=== PATIENT | female | born 1980 | race African-American/Black ===

== ENCOUNTER 2018-06-24 06:36 | Emergency (ER) | payer SELFPAY ==
--- NOTE | 2018-06-24 07:14 | EDM.PDOC ---
ED HPI GENERAL MEDICAL PROBLEM - General Chief Complaint: Gastrointestinal Problem Stated Complaint: VOMITING Time Seen by Provider: 06/24/18 07:05 Source of Information: Reports: Patient History Limitations: Reports: No Limitations - History of Present Illness INITIAL COMMENTS - FREE TEXT/NARRATIVE: History of present illness: []Patient has been vomiting for 3 days and feels extremely tired. She denies any blood in her emesis, diarrhea, fevers, chills or abdominal pain. She does not believe she is , she is due to start her menses tomorrow. She denies any vaginal discharge or pelvic pain. Review of systems: As per history of present illness and below otherwise all systems reviewed and negative. Past medical history: As per history of present illness and as reviewed below otherwise noncontributory. Surgical history: As per history of present illness and as reviewed below otherwise noncontributory. Social history: No reported history of drug or alcohol abuse. Family history: As per history of present illness and as reviewed below otherwise noncontributory. Physical exam: General: Well developed, well nourished in NAD HEENT: Atraumatic, normocephalic, pupils reactive, negative for conjunctival pallor or scleral icterus, mucous membranes moist, throat clear, neck supple, nontender, trachea midline. Lungs: Clear to auscultation, breath sounds equal bilaterally, chest nontender. Heart: S1S2, regular, negative for clicks, rubs, or JVD. Abdomen: NABS, Soft, nondistended, nontender no rebound or guarding. Negative for masses or hepatosplenomegaly. Negative for costovertebral tenderness. Pelvis: Stable nontender. Genitourinary: Deferred. Rectal: Deferred. Extremities: Atraumatic, negative for cords or calf pain. Neurovascular unremarkable. Neuro: Awake, alert, oriented. Cranial nerves II through XII unremarkable. Cerebellum unremarkable. Motor and sensory unremarkable throughout. Exam nonfocal. Skin:warm and dry Diagnostics: Urine, hCG both negative Therapeutics: ODT Zofran ED Course: Improved Impression: Nausea and Vomiting Prescriptions: Zofran Plan: Follow-up with primary care as needed. Definitive disposition and diagnosis as appropriate pending reevaluation and review of above. 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: Musculoskeletal History: Reports: None Neurological History: Reports: None Psychiatric History: Reports: None Endocrine/Metabolic History: Reports: None Hematologic History: Reports: None Immunologic History: Reports: None Oncologic (Cancer) History: Reports: None Dermatologic History: Reports: None - Infectious Disease History Infectious Disease History: Reports: None - Past Surgical History Head Surgeries/Procedures: Reports: None Female Surgical History: Reports: Section Social & Family History - Family History Family Medical History: Noncontributory - Tobacco Use Smoking Status *Q: Current Every Day Smoker Years of Tobacco use: 20 Packs/Tins Daily: 2 - Caffeine Use Caffeine Use: Reports: Coffee, Soda - Recreational Drug Use Recreational Drug Use: No ED ROS GENERAL - Review of Systems Review Of Systems: ROS reveals no pertinent complaints other than HPI. ED EXAM, GI/ABD - Physical Exam Exam: See Below Course - Vital Signs Last Recorded V/S: Last Vital Signs Temp 97.1 F 06/24/18 06:51 Pulse 96 06/24/18 06:51 Resp 16 06/24/18 06:51 BP 137/99 H 06/24/18 06:51 Pulse Ox 96 06/24/18 06:51 - Orders/Labs/Meds Labs: Laboratory Tests 06/24/18 06/24/18 Range/Units 07:23 07:23 Urine Color YELLOW Urine Appearance CLEAR Urine pH 6.0 (5.0-8.0) Ur Specific [place] 1.025 (1.001-1.035) Urine Protein NEGATIVE (NEGATIVE) mg/dL Urine Glucose (UA) NEGATIVE (NEGATIVE) mg/dL Urine Ketones TRACE H (NEGATIVE) mg/dL Urine Occult Blood NEGATIVE (NEGATIVE) Urine Nitrite NEGATIVE (NEGATIVE) Urine Bilirubin NEGATIVE (NEGATIVE) Urine Urobilinogen 1.0 (<2.0) EU/dL Ur Leukocyte Esterase NEGATIVE (NEGATIVE) Urine RBC 0-3 (0-2/HPF) Urine WBC 3-6 (0-5/HPF) Ur Epithelial Cells FEW (NONE-FEW) Urine Bacteria FEW (NEGATIVE) Urine Mucus LIGHT (NONE-MOD) Urine HCG, Qual NEGATIVE (NEGATIVE) Meds: Medications Discontinued Medications Generic Name Dose Route Start Last Admin Trade Name Shweta PRN Reason Stop Dose Admin Ondansetron HCl 4 mg 06/24/18 07:18 06/24/18 07:24 Zofran Odt PO 06/24/18 07:19 4 mg ONETIME ONE Administration Departure - Departure Time of Disposition: 07:49 Disposition: Home, Self-Care 01 Condition: Good Clinical Impression: Nausea & vomiting Qualifiers: Vomiting type: unspecified Vomiting Intractability: unspecified Qualified Code( s): R11.2 - Nausea with vomiting, unspecified - Discharge Information *PRESCRIPTION DRUG MONITORING PROGRAM REVIEWED*: No *COPY OF PRESCRIPTION DRUG MONITORING REPORT IN PATIENT JUSTIN: No Prescriptions: Ondansetron HCl [Zofran] 4 mg PO Q4HR #12 tablet Instructions: Nausea and Vomiting, Adult, [id number] Referrals: PCP,None [Primary Care Provider] - Forms: ED Department Discharge Additional Instructions: The following information is given to patients seen in the emergency department who are being discharged to home. This information is to outline your options for follow-up care. We provide all patients seen in our emergency department with a follow-up referral. The need for follow-up, as well as the timing and circumstances, are variable depending upon the specifics of your emergency department visit. If you don't have a primary care physician on staff, we will provide you with a referral. We always advise you to contact your personal physician following an emergency department visit to inform them of the circumstance of the visit and for follow-up with them and/or the need for any referrals to a consulting specialist. The emergency department will also refer you to a specialist when appropriate. This referral assures that you have the opportunity for follow-up care with a specialist. All of these measure are taken in an effort to provide you with optimal care, which includes your follow-up. Under all circumstances we always encourage you to contact your private physician who remains a resource for coordinating your care. When calling for follow-up care, please make the office aware that this follow-up is from your recent emergency room visit. If for any reason you are refused follow-up, please contact the Emergency Department at and asked to speak to the emergency department charge nurse. Take meds as directed, follow up with your primary care physician, return to ER if symptoms worsen or change. Primary Care [address] [place] [id number]
[2018-06-24] MEDS ORDERED: Ondansetron 4 MG Tab.DIS PO ONE (07:18)
== END 2018-06-24 07:57 | disposition home or self-care (01) ==
LOC: MW.ED 06:36
DX: R11.2 Nausea with vomiting, unspecified (principal); F17.210 Nicotine dependence, cigarettes, uncomplicated; Z91.018 Allergy to other foods; Z88.6 Allergy status to analgesic agent
CPT/HCPCS: 81001; 81025; 99283; A9270

== ENCOUNTER 2018-10-05 02:36 | Emergency (ER) | payer SELFPAY ==
[2018-10-05] MEDS ORDERED: diphenhydrAMINE 50 MG/ML SDV ONE (03:06)
[2018-10-05] MEDS ORDERED: Ondansetron 4 MG/2 ML SDV ONE (03:06)
[2018-10-05] MEDS ORDERED: LORazepam 2 MG/ML SDV ONE (03:07)
== END 2018-10-05 06:00 | disposition home or self-care (01) ==
LOC: MW.ED 02:36
DX: R51 Headache (principal); Z88.5 Allergy status to narcotic agent
CPT/HCPCS: 96360; 96361; 96374; 96375; 99283; 99283-25

== ENCOUNTER 2018-11-06 08:25 | Emergency (ER) | payer OTHER ==
[2018-11-06] MEDS ORDERED: Sodium Chloride 0.9% 1,000 ML IV ONE (08:35)
--- NOTE | 2018-11-06 09:04 | EDM.PDOC ---
ED HPI GENERAL MEDICAL PROBLEM - General Chief Complaint: Gastrointestinal Problem Stated Complaint: stomach pain Time Seen by Provider: 11/06/18 09:01 Source of Information: Reports: Patient - History of Present Illness INITIAL COMMENTS - FREE TEXT/NARRATIVE: HISTORY AND PHYSICAL: History of present illness: []Patient presents with abdominal pain 5 out of 10 right sided upper and lower quadrant with nausea no fever chills or sweats She notes that she has had some upper quadrant pain over the last 3-4 weeks associated with food, however this morning she is hurting in the right lower quadrant and has had one episode of vomiting and loose stool Review of systems: As per history of present illness and below otherwise all systems reviewed and negative. Past medical history: As per history of present illness and as reviewed below otherwise noncontributory. Surgical history: As per history of present illness and as reviewed below otherwise noncontributory. Social history: No reported history of drug or alcohol abuse. Family history: As per history of present illness and as reviewed below otherwise noncontributory. Physical exam: HEENT: Atraumatic, normocephalic, pupils reactive, negative for conjunctival pallor or scleral icterus, mucous membranes moist, throat clear, neck supple, nontender, trachea midline. Lungs: Clear to auscultation, breath sounds equal bilaterally, chest nontender. Heart: S1S2, regular, negative for clicks, rubs, or JVD. Abdomen: Soft, nondistended, tender on deep palpation in right upper and lower quadrant no rebound tenderness Negative for masses or hepatosplenomegaly. Negative for costovertebral tenderness. Pelvis: Stable nontender. Genitourinary: Deferred. Rectal: Deferred. Extremities: Atraumatic, negative for cords or calf pain. Neurovascular unremarkable. Neuro: Awake, alert, oriented. Cranial nerves II through XII unremarkable. Cerebellum unremarkable. Motor and sensory unremarkable throughout. Exam nonfocal. Diagnostics: [CBC CMP UA lipase hCG CT abdomen pelvis with contrast ] Therapeutics: [Normal saline Zofran Proton X Zofran Plan diet Follow-up primary care for ultrasound and' or HIDA scan ] Impression: abdominal pain ] Definitive disposition and diagnosis as appropriate pending reevaluation and review of above. Abdomen Pain Score (Numeric/FACES): 10 - Related Data Allergies Allergy/AdvReac Type Severity Reaction Status Date / Time coconut Allergy Swelling Verified 11/06/18 08:47 ketorolac [From Toradol] Allergy Shortness Verified 11/06/18 08:[address] Contrast Allergy Swelling Uncoded 11/06/18 11:29 Home Meds: Home Meds . 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: Musculoskeletal History: Reports: None Neurological History: Reports: None Psychiatric History: Reports: None Endocrine/Metabolic History: Reports: None Hematologic History: Reports: None Immunologic History: Reports: None Oncologic (Cancer) History: Reports: None Dermatologic History: Reports: None - Infectious Disease History Infectious Disease History: Reports: Chicken Pox - Past Surgical History Head Surgeries/Procedures: Reports: None Female Surgical History: Reports: Section Social & Family History - Family History Family Medical History: Noncontributory - Tobacco Use Smoking Status *Q: Current Every Day Smoker Years of Tobacco use: 15 Packs/Tins Daily: 2 - Caffeine Use Caffeine Use: Reports: None - Recreational Drug Use Recreational Drug Use: No ED ROS GENERAL - Review of Systems Review Of Systems: See Below ED EXAM, GENERAL - Physical Exam Exam: See Below Course - Vital Signs Last Recorded V/S: Last Vital Signs Temp 97.0 F 11/06/18 08:40 Pulse 82 11/06/18 11:14 Resp 17 11/06/18 11:14 BP 145/87 H 11/06/18 11:14 Pulse Ox 99 11/06/18 11:14 - Orders/Labs/Meds Orders: Active Orders 24 hr Category Date Time Status Abdomen Pelvis w Cont [CT] Stat Exams 11/06/18 10:02 Taken Labs: Laboratory Tests 11/06/18 11/06/18 11/06/18 Range/Units 08:50 08:50 08:53 WBC 8.96 (4.0-11.0) K/uL RBC 4.36 (4.30-5.90) M/uL Hgb 11.6 L (12.0-16.0) g/dL Hct 36.6 (36.0-46.0) % MCV 83.9 (80.0-98.0) fL MCH 26.6 L (27.0-32.0) pg MCHC 31.7 (31.0-37.0) g/dL RDW Std Deviation 50.3 (28.0-62.0) fl RDW Coeff of Romaine 17 H (11.0-15.0) % Plt Count 294 (150-400) K/uL MPV 9.80 (7.40-12.00) fL Neut % (Auto) 60.0 (48.0-80.0) % Lymph % (Auto) 27.5 (16.0-40.0) % [place] % (Auto) 10.2 (0.0-15.0) % Eos % (Auto) 2.1 (0.0-7.0) % Baso % (Auto) 0.2 (0.0-1.5) % Neut # (Auto) 5.4 (1.4-5.7) K/uL Lymph # (Auto) 2.5 H (0.6-2.4) K/uL [place] # (Auto) 0.9 H (0.0-0.8) K/uL Eos # (Auto) 0.2 (0.0-0.7) K/uL Baso # (Auto) 0.0 (0.0-0.1) K/uL Nucleated RBC % 0.0 /100WBC Nucleated RBCs # 0 K/uL Sodium 139 (136-145) mmol/L Potassium 3.6 (3.5-5.1) mmol/L Chloride 108 H (98-107) mmol/L Carbon Dioxide 23.8 (21.0-32.0) mmol/L BUN 8 (7.0-18.0) mg/dL Creatinine 0.8 (0.6-1.0) mg/dL Est Cr Clr Drug Dosing TNP Estimated GFR (MDRD) > 60.0 ml/min Glucose 112 H (74-106) mg/dL Calcium 8.2 L (8.5-10.1) mg/dL Total Bilirubin 0.1 L (0.2-1.0) mg/dL AST 11 L (15-37) IU/L ALT 12 L (14-63) IU/L Alkaline Phosphatase 66 (46-116) U/L Total Protein 6.8 (6.4-8.2) g/dL Albumin 2.9 L (3.4-5.0) g/dL Globulin 3.9 (2.6-4.0) g/dL Albumin/Globulin Ratio 0.7 L (0.9-1.6) Lipase 75 (73-393) U/L Urine Color YELLOW Urine Appearance CLEAR Urine pH 6.0 (5.0-8.0) Ur Specific [place] >= 1.030 (1.001-1.035) Urine Protein NEGATIVE (NEGATIVE) mg/dL Urine Glucose (UA) NEGATIVE (NEGATIVE) mg/dL Urine Ketones NEGATIVE (NEGATIVE) mg/dL Urine Occult Blood TRACE-INTACT H (NEGATIVE) Urine Nitrite NEGATIVE (NEGATIVE) Urine Bilirubin NEGATIVE (NEGATIVE) Urine Urobilinogen 0.2 (<2.0) EU/dL Ur Leukocyte Esterase NEGATIVE (NEGATIVE) Urine RBC 0-2 (0-2/HPF) Urine WBC 0-1 (0-5/HPF) Ur Epithelial Cells FEW (NONE-FEW) Urine Bacteria FEW (NEGATIVE) Urine Mucus MODERATE (NONE-MOD) Urine HCG, Qual (NEGATIVE) 11/06/18 Range/Units 08:53 WBC (4.0-11.0) K/uL RBC (4.30-5.90) M/uL Hgb (12.0-16.0) g/dL Hct (36.0-46.0) % MCV (80.0-98.0) fL MCH (27.0-32.0) pg MCHC (31.0-37.0) g/dL RDW Std Deviation (28.0-62.0) fl RDW Coeff of Romaine (11.0-15.0) % Plt Count (150-400) K/uL MPV (7.40-12.00) fL Neut % (Auto) (48.0-80.0) % Lymph % (Auto) (16.0-40.0) % [place] % (Auto) (0.0-15.0) % Eos % (Auto) (0.0-7.0) % Baso % (Auto) (0.0-1.5) % Neut # (Auto) (1.4-5.7) K/uL Lymph # (Auto) (0.6-2.4) K/uL [place] # (Auto) (0.0-0.8) K/uL Eos # (Auto) (0.0-0.7) K/uL Baso # (Auto) (0.0-0.1) K/uL Nucleated RBC % /100WBC Nucleated RBCs # K/uL Sodium (136-145) mmol/L Potassium (3.5-5.1) mmol/L Chloride (98-107) mmol/L Carbon Dioxide (21.0-32.0) mmol/L BUN (7.0-18.0) mg/dL Creatinine (0.6-1.0) mg/dL Est Cr Clr Drug Dosing Estimated GFR (MDRD) ml/min Glucose (74-106) mg/dL Calcium (8.5-10.1) mg/dL Total Bilirubin (0.2-1.0) mg/dL AST (15-37) IU/L ALT (14-63) IU/L Alkaline Phosphatase (46-116) U/L Total Protein (6.4-8.2) g/dL Albumin (3.4-5.0) g/dL Globulin (2.6-4.0) g/dL Albumin/Globulin Ratio (0.9-1.6) Lipase (73-393) U/L Urine Color Urine Appearance Urine pH (5.0-8.0) Ur Specific [place] (1.001-1.035) Urine Protein (NEGATIVE) mg/dL Urine Glucose (UA) (NEGATIVE) mg/dL Urine Ketones (NEGATIVE) mg/dL Urine Occult Blood (NEGATIVE) Urine Nitrite (NEGATIVE) Urine Bilirubin (NEGATIVE) Urine Urobilinogen (<2.0) EU/dL Ur Leukocyte Esterase (NEGATIVE) Urine RBC (0-2/HPF) Urine WBC (0-5/HPF) Ur Epithelial Cells (NONE-FEW) Urine Bacteria (NEGATIVE) Urine Mucus (NONE-MOD) Urine HCG, Qual NEGATIVE (NEGATIVE) Meds: Medications Discontinued Medications Generic Name Dose Route Start Last Admin Trade Name Freq PRN Reason Stop Dose Admin Diphenhydramine HCl 50 mg 11/06/18 10:43 11/06/18 10:51 Benadryl IVPUSH 11/06/18 10:44 50 mg ONETIME ONE Administration Diphenhydramine HCl Confirm 11/06/18 10:44 11/06/18 11:24 Benadryl Administered 11/06/18 10:45 Not Given Dose 50 mg .ROUTE .STK-MED ONE Epinephrine HCl Confirm 11/06/18 10:44 11/06/18 11:24 Adrenalin Administered 11/06/18 10:45 Not Given Dose 1 mg .ROUTE .STK-MED ONE Epinephrine HCl 0.5 mg 11/06/18 10:48 11/06/18 10:53 Adrenalin IM 11/06/18 10:49 0.5 mg ONETIME ONE Administration Sodium Chloride 1,000 mls @ 999 mls/hr 11/06/18 08:35 11/06/18 09:43 Normal Saline IV 11/06/18 09:35 999 mls/hr STAT ONE Administration Iopamidol 100 ml 11/06/18 10:48 11/06/18 11:53 Isovue Multipack-370 (76%) IVPUSH 11/06/18 10:49 100 ml ONETIME STA Administration Methylprednisolone Sodium Succinate 125 mg 11/06/18 10:43 11/06/18 10:52 Solu-Medrol IVPUSH 11/06/18 10:44 125 mg ONETIME ONE Administration Methylprednisolone Sodium Succinate 125 mg 11/06/18 10:42 11/06/18 10:52 Solu-Medrol IVPUSH 11/06/18 10:43 Not Given ONETIME ONE Methylprednisolone Sodium Succinate Confirm 11/06/18 10:45 11/06/18 11:24 Solu-Medrol Administered 11/06/18 10:46 Not Given Dose 125 mg .ROUTE .STK-MED ONE Ondansetron HCl Confirm 11/06/18 08:56 11/06/18 09:57 Zofran Administered 11/06/18 08:57 Not Given Dose 8 mg .ROUTE .STK-MED ONE Ondansetron HCl 8 mg 11/06/18 08:39 11/06/18 09:56 Zofran IVPUSH 11/06/18 08:40 8 mg ONETIME ONE Administration Pantoprazole Sodium Confirm 11/06/18 08:56 11/06/18 09:48 Protonix Iv Administered 11/06/18 08:57 Not Given Dose 80 mg .ROUTE .STK-MED ONE Pantoprazole Sodium 80 mg 11/06/18 08:39 11/06/18 09:51 Protonix Iv IVPUSH 11/06/18 08:40 80 mg .BOLUS ONE Administration Departure - Departure Time of Disposition: 12:25 Disposition: Home, Self-Care 01 Condition: Good Clinical Impression: Abdominal pain - Discharge Information Referrals: PCP,None [Primary Care Provider] - Forms: ED Department Discharge Additional Instructions: Medication as prescribed Return if symptoms persist or worsen Follow-up with primary care and/or general surgery or consideration of ultrasound of the gallbladder and/or HIDA scan [facility] - Primary Care [address] [place] [id number] [facility] - General Surgery Professional Building [address] [place] [address], [address] [place] [address] The following information is given to patients seen in the emergency department who are being discharged to home. This information is to outline your options for follow-up care. We provide all patients seen in our emergency department with a follow-up referral. The need for follow-up, as well as the timing and circumstances, are variable depending upon the specifics of your emergency department visit. If you don't have a primary care physician on staff, we will provide you with a referral. We always advise you to contact your personal physician following an emergency department visit to inform them of the circumstance of the visit and for follow-up with them and/or the need for any referrals to a consulting specialist. The emergency department will also refer you to a specialist when appropriate. This referral assures that you have the opportunity for follow-up care with a specialist. All of these measure are taken in an effort to provide you with optimal care, which includes your follow-up. Under all circumstances we always encourage you to contact your private physician who remains a resource for coordinating your care. When calling for follow-up care, please make the office aware that this follow-up is from your recent emergency room visit. If for any reason you are refused follow-up, please contact the [facility] emergency department at and asked to speak to the emergency department charge nurse. - My Orders Last 24 Hours: My Active Orders 11/06/18 10:02 Abdomen Pelvis w Cont [CT] Stat - Assessment/Plan Last 24 Hours: My Active Orders 11/06/18 10:02 Abdomen Pelvis w Cont [CT] Stat
[2018-11-06] MEDS: Pantoprazole 40 MG Vial ONE ×2 (09:17→09:48)
[2018-11-06] MEDS: Ondansetron 4 MG/2 ML SDV ONE ×2 (09:17→09:57)
[2018-11-06] MEDS: Pantoprazole 40 MG Vial IVPUSH ONE ×2 (09:42→09:51)
[2018-11-06] MEDS: Ondansetron 4 MG/2 ML SDV IVPUSH ONE ×2 (09:42→09:56)
[2018-11-06 09:52] LABS: CHLORIDE,CL 108 mmol/L (98-107); SODIUM,NA 139 mmol/L (136-145)
[2018-11-06] MEDS ORDERED: methylPREDNISolone Sodium Succinate 125 MG/2 ML SDV IVPUSH ONE ×2 (10:42→10:43)
[2018-11-06] MEDS ORDERED: diphenhydrAMINE 50 MG/ML SDV IVPUSH ONE (10:43)
[2018-11-06] MEDS ORDERED: EPINEPHrine 1 MG/ML SDV ONE (10:44)
[2018-11-06] MEDS ORDERED: diphenhydrAMINE 50 MG/ML SDV ONE (10:44)
[2018-11-06] MEDS ORDERED: methylPREDNISolone Sodium Succinate 125 MG/2 ML SDV ONE (10:45)
[2018-11-06] MEDS ORDERED: EPINEPHrine 1 MG/ML SDV IM ONE (10:48)
[2018-11-06] MEDS ORDERED: Iopamidol 755 MG/ML 500 ML Multipack Bottle IVPUSH STA (10:48)
--- NOTE | 2018-11-07 12:37 | CT ---
EXAM DATE: 11/06/18 PATIENT'S AGE: 38 Patient: SANJUANA KHAN Facility: [facility] Site . Site : [id number] Study: CT-Abdomen/Pelvis-11/06/2018 11:21:13 AM Ordering Physician: Sylvester Figueroa Final Report: INDICATION: Pain. TECHNIQUE: Contiguous axial images were acquired through the abdomen and pelvis after the intravenous administration of contrast. Sagittal and coronal reconstructions. COMPARISON: 04/06/2018. FINDINGS: Lower chest: Normal heart size. No pericardial effusion. Lung bases are clear. Abdomen and pelvis: The liver, spleen, pancreas, adrenal glands and kidneys appear normal. Contracted gallbladder. No calcified stones are seen within the gallbladder. The bile ducts normal caliber. Normal caliber abdominal aorta. No abnormally dilated bowel to suggest obstruction. The appendix is not visualized , consistent with a prior appendectomy. No appreciable abnormal small or large bowel wall thickening. Mild sigmoid diverticulosis. No free air. A trace amount of free fluid is seen in the pelvis which is likely physiologic in a patient of this gender and age. No lymphadenopathy by size criteria. There is a small fat containing paraumbilical hernia. Unremarkable urinary bladder. Uterus is present. There is a 2 cm dominant follicle versus simple cyst in the left ovary , which is a benign/physiologic finding. Bones: No acute bony abnormality. IMPRESSION: 1. There is a dominant follicle versus simple cyst in the left ovary, with a trace amount of free fluid in the pelvis. Both of these findings are likely benign/physiologic. 2. Other acute findings are seen in the abdomen or pelvis. Dictated by Pola Tucker MD @ 11/06/2018 12:19:52 PM Please note that all CT scans at this facility use dose modulation, iterative reconstruction, and/or weight-based dosing when appropriate to reduce radiation dose to as low as reasonably achievable. Dictated by: Pola Tucker MD @ 11/06/2018 12:20:20 Signed by: Pola Tucker MD @11/06/2018 12:20:20 PM (Electronic Signature) Report Signed by Proxy. [facility]
== END 2018-11-06 12:40 | disposition home or self-care (01) ==
LOC: MW.ED 08:25
DX: R10.31 Right lower quadrant pain (principal); R10.11 Right upper quadrant pain; R11.2 Nausea with vomiting, unspecified; F17.210 Nicotine dependence, cigarettes, uncomplicated; Z88.6 Allergy status to analgesic agent; Z91.041 Radiographic dye allergy status
CPT/HCPCS: 36415; 74177; 80053; 81001; 81025; 83690; 85025; 96361; 96372; 96374; 96375; 99284; C9113; J0171; J1200; J2405; J2930; J7040; Q9967

== ENCOUNTER 2018-12-09 17:20 | Emergency (ER) | payer OTHER, SELFPAY ==
--- NOTE | 2018-12-09 18:27 | EDM.PDOC ---
ED HPI GENERAL MEDICAL PROBLEM - General Chief Complaint: Gastrointestinal Problem Stated Complaint: VOMITING Time Seen by Provider: 12/09/18 18:16 - History of Present Illness INITIAL COMMENTS - FREE TEXT/NARRATIVE: HISTORY AND PHYSICAL: History of present illness: The patient is a 38-year-old female who has been evaluated both here in the emergency department as well as an outpatient for gallbladder disease and had a gallbladder ultrasound on November 22 revealing no gallstones or pericholecystic changes and she also underwent a HIDA scan done on December 05 which revealed biliary dyskinesia. The patient notes that she has gallbladder issues and she's been trying to watch her diet and stay hydrated but she has not had much of an appetite due to the discomfort and the nausea associated with almost anything that she eats. The patient ate 3 yogurts today which were low-fat which she thinks may have triggered the pain to worsen and she had one episode of vomiting. She says she has an appointment in our surgery clinic with Dr. Wooten this and she is here in the emergency department because she needs a note for work as this pain an episode of vomiting occurred there. The patient tells nursing and Mamie interview that she does not want any further workup and she knows what the problem is that she does need a note for work and something for the nausea. Review of systems: As per history of present illness and below otherwise all systems reviewed and negative. Past medical history: As per history of present illness and as reviewed below otherwise noncontributory. Surgical history: As per history of present illness and as reviewed below otherwise noncontributory. Social history: No reported history of drug or alcohol abuse. Family history: As per history of present illness and as reviewed below otherwise noncontributory. Physical exam: General: Well-developed well-nourished female who is mildly overweight but nontoxic. Vital signs are noted by me HEENT: Atraumatic, normocephalic, negative for conjunctival pallor or scleral icterus, mucous membranes moist, throat clear, neck supple, nontender, trachea midline. Lungs: Clear to auscultation, breath sounds equal bilaterally, chest nontender. Heart: S1S2, regular, rate and rhythm no overt murmurs Abdomen: Soft, nondistended, mild right upper quadrant tenderness without rebound or guarding Negative for masses or hepatosplenomegaly. Negative for costovertebral tenderness. Pelvis: Stable nontender. Genitourinary: Deferred. Rectal: Deferred. Extremities: Atraumatic, negative for cords or calf pain. Neurovascular unremarkable. Neuro: Awake, alert, oriented. Cranial nerves II through XII unremarkable. Cerebellum unremarkable. Motor and sensory unremarkable throughout. Exam nonfocal. Diagnostics: Patient was offered laboratory evaluation and declines Therapeutics: None I given a patient I work note for today and tomorrow and have advised her on dietary restrictions and need for hydration. I will give her Zofran for home and she is comfortable with this plan. She is aware that she can return at any time for further evaluation Impression: Right upper quadrant pain with biliary dyskinesia, one episode of vomiting Definitive disposition and diagnosis as appropriate pending reevaluation and review of above. Right Upper Abdomen Pain Score (Numeric/FACES): 10 - Related Data Allergies Allergy/AdvReac Type Severity Reaction Status Date / Time coconut Allergy Swelling Verified 12/09/18 18:05 Iodinated Contrast- Oral and Allergy Other Verified 12/09/18 18:06 IV Dye Iodine and Iodide Containing Allergy Other Verified 12/09/18 18:06 Produc ketorolac [From Toradol] Allergy Shortness Verified 12/09/18 18:[address] Contrast Allergy Swelling Uncoded 12/09/18 18:05 Home Meds: Home Meds . [No Known Home Meds] 11/06/18 [History] Past Medical History HEENT History: Reports: None Cardiovascular History: Reports: None Respiratory History: Reports: Asthma Gastrointestinal History: Reports: None Genitourinary History: Reports: None HEAD OF CYTOGENETICS History: Reports: Musculoskeletal History: Reports: None Neurological History: Reports: None Psychiatric History: Reports: None Endocrine/Metabolic History: Reports: None Hematologic History: Reports: None Immunologic History: Reports: None Oncologic (Cancer) History: Reports: None Dermatologic History: Reports: None - Infectious Disease History Infectious Disease History: Reports: Chicken Pox - Past Surgical History Head Surgeries/Procedures: Reports: None Female Surgical History: Reports: Section Social & Family History - Family History Family Medical History: Noncontributory - Tobacco Use Smoking Status *Q: Current Every Day Smoker Years of Tobacco use: 15 Packs/Tins Daily: 2 - Caffeine Use Caffeine Use: Reports: None - Recreational Drug Use Recreational Drug Use: No ED ROS GENERAL - Review of Systems Review Of Systems: ROS reveals no pertinent complaints other than HPI. ED EXAM, GENERAL - Physical Exam Exam: See Below (See dictation) Course - Vital Signs Last Recorded V/S: Last Vital Signs Temp 36.9 C 12/09/18 18:03 Pulse 101 H 12/09/18 18:03 Resp 18 12/09/18 18:03 BP 166/106 H 12/09/18 18:03 Pulse Ox 99 12/09/18 18:03 Departure - Departure Time of Disposition: 18:26 Disposition: Home, Self-Care 01 Condition: Good Clinical Impression: Abdominal pain, Vomiting - Discharge Information Referrals: PCP,Unknown [Primary Care Provider] - Additional Instructions: The following information is given to patients seen in the emergency department who are being discharged to home. This information is to outline your options for follow-up care. We provide all patients seen in our emergency department with a follow-up referral. The need for follow-up, as well as the timing and circumstances, are variable depending upon the specifics of your emergency department visit. If you don't have a primary care physician on staff, we will provide you with a referral. We always advise you to contact your personal physician following an emergency department visit to inform them of the circumstance of the visit and for follow-up with them and/or the need for any referrals to a consulting specialist. The emergency department will also refer you to a specialist when appropriate. This referral assures that you have the opportunity for followup care with a specialist. All of these measure are taken in an effort to provide you with optimal care, which includes your followup. Under all circumstances we always encourage you to contact your private physician who remains a resource for coordinating your care. When calling for followup care, please make the office aware that this follow-up is from your recent emergency room visit. If for any reason you are refused follow-up, please contact the [facility] emergency department at and ask to speak to the emergency department charge nurse. [facility] Specialty Care-General Surgery Professional Building [address] [place] [id number] Please keep your appointment on with Dr. Wooten and try to push hydration and eat a low-fat diet as we discussed. Use Zofran you have been prescribed as needed for nausea and vomiting. Please return to ER as needed and as directed for further care sooner than her appointment if you need to.
== END 2018-12-09 18:32 | disposition home or self-care (01) ==
LOC: MW.ED 17:20
DX: K82.8 Other specified diseases of gallbladder (principal); J45.909 Unspecified asthma, uncomplicated; F17.210 Nicotine dependence, cigarettes, uncomplicated; Z91.041 Radiographic dye allergy status; Z91.018 Allergy to other foods; Z88.8 Allergy status to other drugs, medicaments and biological substances
CPT/HCPCS: 99283

== ENCOUNTER 2019-05-16 21:49 | Emergency (ER) | payer OTHER, SELFPAY ==
[2019-05-16] MEDS ORDERED: Cephalexin 500 MG Cap PO ONE (22:33)
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
== END 2019-05-16 22:55 | disposition home or self-care (01) ==
LOC: MW.ED 21:49
DX: L03.211 Cellulitis of face (principal); I10 Essential (primary) hypertension; F17.210 Nicotine dependence, cigarettes, uncomplicated; Z91.041 Radiographic dye allergy status; Z91.018 Allergy to other foods
CPT/HCPCS: 99282; A9270; 99283

== ENCOUNTER 2019-09-13 14:56 | Emergency (ER) | payer MEDICAID ==
[2019-09-13] MEDS ORDERED: Acetaminophen 500 MG Tab PO ONE (15:23)
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
== END 2019-09-13 15:54 | disposition home or self-care (01) ==
LOC: MW.ED 14:56
DX: G89.18 Other acute postprocedural pain (principal); I10 Essential (primary) hypertension; J45.909 Unspecified asthma, uncomplicated; E66.9 Obesity, unspecified; Z68.41 Body mass index [BMI] 40.0-44.9, adult; Z91.018 Allergy to other foods; Z91.041 Radiographic dye allergy status; Z88.8 Allergy status to other drugs, medicaments and biological substances
CPT/HCPCS: 99283; A9270; 99282

== ENCOUNTER 2019-11-09 02:46 | Emergency (ER) | payer MEDICAID, OTHER ==
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
== END 2019-11-09 04:10 | disposition home or self-care (01) ==
LOC: MW.ED 02:46
DX: J06.9 Acute upper respiratory infection, unspecified (principal); I10 Essential (primary) hypertension; E66.9 Obesity, unspecified; Z68.38 Body mass index [BMI] 38.0-38.9, adult; F17.210 Nicotine dependence, cigarettes, uncomplicated; Z20.828 Contact with and (suspected) exposure to other viral communicable diseases; Z88.8 Allergy status to other drugs, medicaments and biological substances; Z91.041 Radiographic dye allergy status; Z91.018 Allergy to other foods
CPT/HCPCS: 99282; 99283; U0002

== ENCOUNTER 2019-11-19 16:05 | Emergency (ER) | payer MEDICAID, OTHER ==
[2019-11-19] MEDS ORDERED: Acetaminophen/Codeine 300-30 MG Tab PO ONE (16:31)
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
[2019-11-19 17:46] LABS: BLOOD UREA NITROGEN,BUN 11 mg/dL (7.0-18.0); CARBON DIOXIDE,CO2 28.1 mmol/L (21.0-32.0); CHLORIDE,CL 104 mmol/L (98-107); GLUCOSE RANDOM 110 mg/dL (74-106); POTASSIUM,K 3.6 mmol/L (3.5-5.1); SODIUM,NA 140 mmol/L (136-145)
--- NOTE | 2019-11-19 18:02 | US ---
Right lower extremity deep venous ultrasound: Duplex and color Doppler evaluation was obtained of the right common femoral, superficial femoral, popliteal, posterior tibial and peroneal veins. Study is slightly limited due to patient body habitus. Within this limitation, normal augmentation is seen. No definite findings of deep venous thrombosis. Impression: 1. Slightly limited study as noted above. No definite findings of right lower extremity deep venous thrombosis. Diagnostic code #2 This report was dictated in MDT
== END 2019-11-19 18:25 | disposition home or self-care (01) ==
LOC: MW.ED 16:05
DX: M79.604 Pain in right leg (principal); R60.0 Localized edema; E66.9 Obesity, unspecified; I10 Essential (primary) hypertension; Z88.5 Allergy status to narcotic agent; F17.210 Nicotine dependence, cigarettes, uncomplicated; Z91.041 Radiographic dye allergy status; Z91.018 Allergy to other foods; Z88.6 Allergy status to analgesic agent; Z68.39 Body mass index [BMI] 39.0-39.9, adult
CPT/HCPCS: 36415; 80048; 83880; 85025; 93971; 99284; A9270; 99283

== ENCOUNTER 2019-12-30 14:32 | Emergency (ER) | payer MEDICAID ==
[2019-12-30] MEDS ORDERED: diphenhydrAMINE 50 MG Cap PO ONE (15:15)
[2019-12-30] MEDS ORDERED: predniSONE 20 MG Tab PO STA (15:15)
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
== END 2019-12-30 15:41 | disposition home or self-care (01) ==
LOC: MW.ED 14:32
DX: L25.9 Unspecified contact dermatitis, unspecified cause (principal); I10 Essential (primary) hypertension; E66.9 Obesity, unspecified; J45.909 Unspecified asthma, uncomplicated; Z88.5 Allergy status to narcotic agent; Z91.030 Bee allergy status; Z88.6 Allergy status to analgesic agent; Z90.49 Acquired absence of other specified parts of digestive tract; Z79.899 Other long term (current) drug therapy
CPT/HCPCS: 99282; A9270

== ENCOUNTER 2020-06-16 10:07 | Emergency (ER) | payer MEDICAID ==
[2020-06-16] MEDS ORDERED: Morphine 4 MG/ML Syringe IVPUSH ONE (10:12)
[2020-06-16] MEDS ORDERED: Sodium Chloride 0.9% 10 ML Syringe FLUSH PRN (10:12)
[2020-06-16] MEDS ORDERED: Sodium Chloride 0.9% 2.5 ML Syringe FLUSH PRN (10:12)
[2020-06-16] MEDS ORDERED: Ondansetron 4 MG/2 ML SDV IVPUSH ONE (10:12)
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
--- NOTE | 2020-06-16 10:50 | CR ---
INDICATION: Chest pain. TECHNIQUE: Chest 1 view. COMPARISON: 05/12/2018 FINDINGS: The heart size and central vascular pattern remain stable and within normal range. The lungs remain clear of acute infiltrates. No pleural effusion is evident. No acute osseous abnormality is identified. IMPRESSION: No acute cardiopulmonary disease is evident. Dictated by Jw Santos MD @ Jun 16 2020 10:47AM Signed by Dr. Jw Santos @ Jun 16 2020 10:49AM
[2020-06-16 11:18] LABS: BLOOD UREA NITROGEN,BUN 6 mg/dL (7.0-18.0); CARBON DIOXIDE,CO2 27.1 mmol/L (21.0-32.0); CHLORIDE,CL 106 mmol/L (98-107); GLUCOSE RANDOM 93 mg/dL (74-106); LIPASE 84 U/L (73-393); POTASSIUM,K 4.1 mmol/L (3.5-5.1); SODIUM,NA 140 mmol/L (136-145)
[2020-06-16] MEDS ORDERED: Enoxaparin 100 MG/1 ML Syringe SUBCUT ONE (11:32)
[2020-06-16] MEDS ORDERED: Enoxaparin 150 MG/1 ML Syringe SUBCUT ONE (11:43)
== END 2020-06-16 12:15 | disposition home or self-care (01) ==
LOC: MW.ED 10:07
DX: R07.9 Chest pain, unspecified (principal); J45.909 Unspecified asthma, uncomplicated; I10 Essential (primary) hypertension; F17.200 Nicotine dependence, unspecified, uncomplicated; E66.9 Obesity, unspecified; Z68.41 Body mass index [BMI] 40.0-44.9, adult; Z91.018 Allergy to other foods; Z88.5 Allergy status to narcotic agent; Z91.041 Radiographic dye allergy status; Z88.6 Allergy status to analgesic agent
CPT/HCPCS: 36415; 71045; 80053; 83690; 84484; 85025; 85379; 93005; 96372; 96374; 96375; 99285; J1650; J2270; J2405; 93010; 99283

== ENCOUNTER 2020-06-16 13:41 | Emergency (ER) | payer MEDICAID ==
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
[2020-06-16] MEDS ORDERED: Morphine 4 MG/ML Syringe IVPUSH ONE (14:09)
--- NOTE | 2020-06-16 15:38 | US ---
INDICATION: + D-dimer. COMPARISON: none TECHNIQUE: A compression venous ultrasound exam was performed of both lower extremities using jean-baptiste scale imaging, color Doppler and spectral Doppler analysis. FINDINGS: Sonographic imaging of the lower extremities demonstrates normal compressibility and color Doppler venous blood flow within the common femoral, deep femoral, and proximal greater saphenous veins. Within the thighs the femoral veins are patent and compressible. At a lower level the popliteal and posterior tibial veins also show normal compressibility and color Doppler venous blood flow. IMPRESSION: Normal venous ultrasound exam. No evidence of deep vein thrombosis within either the left or right lower extremity. Dictated by Soha Rosenberg MD @ Jun 16 2020 3:35PM Signed by Dr. Soha Rosenberg @ Jun 16 2020 3:37PM
== END 2020-06-16 15:40 | disposition home or self-care (01) ==
LOC: MW.ED 13:41
DX: R07.9 Chest pain, unspecified (principal); I10 Essential (primary) hypertension; J45.909 Unspecified asthma, uncomplicated; E66.9 Obesity, unspecified; Z68.42 Body mass index [BMI] 45.0-49.9, adult; Z91.018 Allergy to other foods; Z88.5 Allergy status to narcotic agent; Z91.041 Radiographic dye allergy status
CPT/HCPCS: 36415; 84484; 93970; 96374; 99285; J2270; 93010; 99283

== ENCOUNTER 2020-09-14 21:14 | Emergency (ER) | payer MEDICAID ==
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
== END 2020-09-14 23:32 | disposition home or self-care (01) ==
LOC: MW.ED 21:14
DX: R59.0 Localized enlarged lymph nodes (principal); I10 Essential (primary) hypertension; J45.909 Unspecified asthma, uncomplicated; E66.9 Obesity, unspecified; Z68.41 Body mass index [BMI] 40.0-44.9, adult; Z91.018 Allergy to other foods; Z88.5 Allergy status to narcotic agent; Z91.041 Radiographic dye allergy status; Z79.899 Other long term (current) drug therapy
CPT/HCPCS: 87651-QW; 99283